=== PATIENT | female | born 1990 | race Caucasian/White ===

== ENCOUNTER 2021-06-29 08:50 | Emergency (ER) | payer OTHER ==
[~2021-06-29] VITALS: Ht 149.9 cm; Wt 51.3 kg
[2021-06-29 08:52] VITALS: BP 111/53
[2021-06-29 10:55] LABS: Urine Bacteria NONE SEEN /hpf (None Seen); Urine Blood Negative /uL (Negative); Urine Specific Gravity 1.022 (1.001-1.035); Urine WBC 1 /hpf (0 - 5)
[2021-06-29] MEDS ORDERED: KETOROLAC TROMETH 60MG/2ML VIAL IM ONE (11:15)
[2021-06-29] MEDS ORDERED: IBUP600T27 PO (11:18)
[2021-06-29] MEDS ORDERED: METH500T22 PO (11:18)
== END 2021-06-29 11:30 | disposition home or self-care (01) ==
LOC: ER 08:50
DX: S39.012A Strain of muscle, fascia and tendon of lower back, initial encounter (principal); Z79.1 Long term (current) use of non-steroidal anti-inflammatories (NSAID); Z79.899 Other long term (current) drug therapy; X58.XXXA Exposure to other specified factors, initial encounter; Y93.89 Activity, other specified; Y92.89 Other specified places as the place of occurrence of the external cause; Y99.8 Other external cause status
CPT/HCPCS: 81001; 81025; 96372; 99283; J1885